=== PATIENT | female | born 1970 | race Caucasian/White ===

== ENCOUNTER 2023-01-28 13:51 | Emergency (ER) | payer OTHER ==
[2023-01-28] MEDS ORDERED: Sodium Chloride 0.9% 1,000 ML ONE (14:08)
[2023-01-28] MEDS ORDERED: Morphine 4 MG/ML VIAL ONE (14:08)
[2023-01-28] MEDS ORDERED: Ondansetron PF 4 MG/2 ML Vial ONE (14:09)
[2023-01-28 14:11] LABS: #Basophils 0.1 thou/uL (0.0-0.2); #Eosinphils 0.1 thou/uL (0.0-0.7); #Lymphocytes 1.7 thou/uL (1.20-3.40); #Monocytes 0.7 thou/uL (0.11-0.59); #Neutrophils 4.7 thou/uL (1.40-6.50); %Basophils 0.8 % (0.0-1.0); %Eosinophils 1.3 % (0.0-10.0); %Lymphocytes 23.3 % (21.0-51.0); %Monocytes 9.5 % (0.0-10.0); %Neutrophils 65.1 % (42.0-75.0); Hematocrit 42.7 % (36.0-47.0); Hemoglobin 13.8 g/dL (12.0-16.0); Mean Corpuscular HGB CONC 32.4 g/dL (32.0-36.0); Mean Corpuscular Hemoglobin 30.6 pg (27.0-31.0); Mean Corpuscular Volume 94.4 fl (78.0-98.0); Mean Platelet Volume 10.1 fL (7.4-10.4); Platelet Count 183 10x3/uL (130-400); RBC Distribution Width 12.1 % (11.5-14.5); Red Blood Cell (RBC) Count 4.52 mill/uL (4.20-5.40); White Blood Cell (WBC) Count 7.2 10x3/uL (4.8-10.8)
[2023-01-28 14:19] LABS: BHCG - Serum Negative (NEGATIVE); Pregs Control Bar Appear? YES (CONTROL BAR)
[2023-01-28] MEDS ORDERED: Ketorolac Tromethamine 30 MG/ML VIAL ONE (14:26)
[2023-01-28 14:27] LABS: ALT (SGPT) 24 U/L (8-55); AST (SGOT) 20 U/L (5-34); Albumin 4.4 g/dL (3.5-5.0); Alkaline Phosphatase 78 U/L (40-110); Anion Gap 14 mmol/L (10-20); BUN (Urea Nitrogen) 16 mg/dL (7.0-18.7); Bilirubin, Total 0.4 mg/dL (0.2-1.2); Calc. Creatinine Clearance 0 mL/min (70-130); Calcium 9.6 mg/dL (7.8-10.44); Carbon Dioxide 23 mmol/L (22-29); Chloride 108 mmol/L (98-107); Estimated GFR 83; Globulin 2.7 g/dL (2.4-3.5); Glucose 105 mg/dL (70-105); Potassium 3.6 mmol/L (3.5-5.1); Protein, Total 7.1 g/dL (6.0-8.3); Sodium 141 mmol/L (136-145)
[2023-01-28 16:06] LABS: Bilirubin Negative (Negative); Blood, Urine Large (Negative); Glucose, Urine (Dipstick) Negative (Negative); Ketone, Urine Negative (Negative); Leukocyte Negative (Negative); Nitrite Negative (Negative); Protein, Urine (Dipstick) Negative (Neg-Trace); Urobilinogen 0.2 mg/dL (Less than 2); pH, Urine 6.5 (5.0-9.0)
[2023-01-28 16:07] LABS: Bacteria/HPF Rare-Few HPF (None Seen); CAUTI Indications for Culture Dysuria,urgency,freq; Clarity Hazy (Clear); Specific Gravity, Urine 1.023 (1.002-1.036); Squamous Epithelial 0-3 HPF (0-3); WBC/HPF 0-3 HPF (0-3)
[2023-01-28 16:08] LABS: Urine Culture Reflex No No
[2023-01-28] MEDS ORDERED: HYDROcodone/Acetaminophen 10/325 mg Tablet ONE (17:02)
== END 2023-01-28 17:36 | disposition home or self-care (01) ==
LOC: NAV ERS 13:51
DX: N13.2 Hydronephrosis with renal and ureteral calculous obstruction (principal); I10 Essential (primary) hypertension; F17.210 Nicotine dependence, cigarettes, uncomplicated; Z79.899 Other long term (current) drug therapy
CPT/HCPCS: 74177; 80053; 81001; 84703; 85025; 94760; 96361; 96374; 96375; J1885; J2270; J2405; J7050

== ENCOUNTER 2024-11-13 10:22 | Outpatient (CLI) | payer OTHER | END 2024-11-13 10:23 | disposition home or self-care (01) | LOC: NAV RAD 10:22 | PROVIDERS: ATTEND Family Medicine | DX: K29.70 Gastritis, unspecified, without bleeding (principal); R60.0 Localized edema; R06.00 Dyspnea, unspecified | CPT/HCPCS: 71046 ==